=== PATIENT | female | born 1935 | race Caucasian/White ===

== ENCOUNTER 2019-07-13 13:36 | Emergency (ER) | payer OTHER, MEDICARE ==
[2019-07-13 13:53] VITALS: BP 148/69; PULSE 89; TEMP 98.3; BMI 24.5
--- NOTE | 2019-07-13 14:09 | PDOC ---
History of Present Illness - General Chief Complaint: Pain Stated Complaint: "Right Lung hurts" Time Seen by Provider: 07/13/19 13:47 History Source: Patient Exam Limitations: No Limitations - History of Present Illness Initial Comments: 07/13/19 14:16 High functioning 84-year-old female with history of hypertension and no underlying lung disease other than episode of pneumonia 15 years ago presents now for clarification of whether she has pneumonia and an abnormal chest x-ray. Patient reports a constant ache in her right mid back for the last 3 days, no associated fever/chills/cough/shortness of breath. She went to urgent care 2 days ago where a chest x-ray was performed, the urgent care provider preliminarily read an abnormality on the chest x-ray consistent with pneumonia. She was prescribed which she feels was doxycycline and has taken 2 doses so far. The subsequent radiology read was negative, so the patient saw another provider at the urgent care today who also felt they saw an abnormality. She presents to the emergency department here for further clarification on whether her chest x-ray is in fact abnormal. She has mild discomfort in a small area of the right mid back, denies any cardiopulmonary complaints otherwise. No recent sick contacts, no recent DVT or PE risk factors, no exercise limitations. Patient is followed by Dr. Dubose and Dr. Burnham of pulmonary. Past History - Past Medical History Allergies/Adverse Reactions: Allergies Allergy/AdvReac Type Severity Reaction Status Date / Time levofloxacin [From Levaquin] Allergy Severe Verified 07/13/19 13:38 Penicillins Allergy Unknown Verified 07/13/19 13:38 Home Medications: Ambulatory Orders Diltiazem Cd [Cardizem Cd -] 180 mg PO DAILY 10/04/12 predniSONE [Deltasone -] 40 mg PO DAILY #10 tablet 10/04/12 Albuterol Sulfate [Proair Hfa] 07/13/19 Doxycycline Monohydrate [Monodox] 100 mg PO Q12H 07/13/19 COPD: No HTN: Yes - Surgical History Abdominal Surgery: Yes Cholecystectomy: Yes - Immunization History Td Vaccination: No - Psycho Social/Smoking Cessation Hx Smoking Status: No Smoking History: Never smoked Number of Cigarettes Smoked Daily: 0 Hx Alcohol Use: No Drug/Substance Use Hx: No Substance Use Type: None Review of Systems - Review of Systems Constitutional: No: Chills, Fever, Night Sweats, Unintentional Wgt. Loss Respiratory: No: Cough, Shortness of Breath, SOB with Exertion Cardiac (ROS): No: Chest Pain, Edema, Lightheadedness, Palpitations ABD/GI: No: Diarrhea, Nausea, Vomiting Musculoskeletal: Yes: See HPI, Back Pain Neurological: No: Headache All Other Systems: Reviewed and Negative *Physical Exam - Vital Signs Last Vital Signs Temp Pulse Resp BP Pulse Ox 98.3 F 89 19 148/69 97 07/13/19 13:37 07/13/19 13:37 07/13/19 13:37 07/13/19 13:37 07/13/19 13:37 - Physical Exam 07/13/19 14:18 Vital signs normal, afebrile, O2 sat 97% on room air. GENERAL: The patient is awake, alert, and fully oriented, in no acute distress. Pleasant elderly woman joking with staff, no acute distress. HEAD: Normal with no signs of trauma. EYES: PERRL, EOMI, sclera anicteric, conjunctiva clear with no pallor. ENT: Oropharynx clear without exudates. Moist mucous membranes. NECK: Normal range of motion, supple without lymphadenopathy, JVD, or masses. LUNGS: Breath sounds equal, clear to auscultation bilaterally. No wheeze/ crackles/focally decreased breath sounds. Good air entry bilaterally. HEART: Regular rate and rhythm, normal S1 and S2 without murmur or rub. ABDOMEN: Soft/nontender/nondistended. BS wnl. No guarding or rebound. No palpable masses. No hepatosplenomegaly. EXTREMITIES: Normal range of motion, trace pretibial edema bilaterally. 2+ distal pulses. No cords, erythema, or tenderness. NEUROLOGICAL: Cranial nerves II through XII grossly intact. Normal speech, normal gait. PSYCH: Normal mood, normal affect. SKIN: Warm, Dry, no rashes or lesions noted. Heart Score/ECG Review #1 ECG reviewed & interpreted by me at: 13:59 General ECG Interpretation: Sinus Rhythm (with single PVC noted), Normal Rate ( 73), Normal Intervals (qtc 436), No acute ischemic changes ED Treatment Course - RADIOLOGY Radiology Studies Ordered: Category Date Time Status CHEST PA & LAT [RAD] Stat Radiology 07/13/19 13:41 Ordered Medical Decision Making - Medical Decision Making 07/13/19 14:22 High functioning 84-year-old female with no significant underlying pulmonary history presents with nonspecific right mid back pain since yesterday and uncertain findings on outpatient chest x-ray at urgent care. Patient is under treatment for presumed pneumonia with doxycycline, presents for clarification of the findings of her chest x-ray. Presentation could be consistent with early infectious process though patient has no other red flags or signs or symptoms suggestive of pneumonia. Musculoskeletal pain is possible as an etiology, this is not consistent with ACS or PE. EKG nonischemic repeat PA/lateral CXR discuss plan with PCPs 07/13/19 14:42 no acute chest pathology on rads read. On my review, there is some hilar density but this is unchanged from 20 and 33 months ago, but likely represents the finding the other providers identified on the chest xray. Dr. Burnham away on medical leave. Pt feels well, will complete her abx regardless , and will f/u with Dr. Dubose in the office. Understands return criteria. Discharge - Discharge Information Problems reviewed: Yes Clinical Impression/Diagnosis: Mid back pain on right side Condition: Stable Disposition: HOME - Follow up/Referral Referrals: Rosales Dubose MD [Staff Physician] - Yuriy Burnham MD [Staff Physician] - - Patient Discharge Instructions Patient Printed Discharge Instructions: DI for Thoracic Back Pain Additional Instructions: Activity as tolerated. Stay hydrated. Tylenol 1000 mg every 8 hours and/or ibuprofen 600 mg every 8 hours as needed for pain. An EKG and a chest x-ray showed no acute abnormalities. There is a finding on the chest x-ray which could represent with the previous physicians saw as an abnormality, however this is unchanged from prior chest x-rays you have had in the past. You may complete the antibiotic course as previously prescribed. It is possible the pain may be due to musculoskeletal pain. Continue your medications as previously prescribed by your physician. You should follow up with Dr. Dubose (Dr. Burnham is away) as soon as possible regarding today's emergency department visit. Return to the emergency department for any new or concerning symptoms, particularly worsening pain, fever, rash, difficulty breathing, chest pain. - Post Discharge Activity
--- NOTE | 2019-07-13 15:29 | EKG ---
Test Reason : Blood Pressure : / mmHG Vent. Rate : 073 BPM Atrial Rate : 073 BPM P-R Int : 182 ms QRS Dur : 088 ms QT Int : 396 ms P-R-T Axes : 080 065 053 degrees QTc Int : 436 ms SINUS RHYTHM WITH OCCASIONAL PREMATURE VENTRICULAR COMPLEXES POSSIBLE LEFT ATRIAL ENLARGEMENT BORDERLINE ECG WHEN COMPARED WITH ECG OF 24-NOV-2001 08:23, PREMATURE VENTRICULAR COMPLEXES ARE NOW PRESENT Confirmed by Suman Rucker ([id number]) on 07/13/2019 3:28:56 PM Referred By: HANANE SOLIS Confirmed By:Suman Rucker
== END 2019-07-13 14:50 | disposition home or self-care (01) ==
LOC: FER 13:36
DX: M54.6 Pain in thoracic spine (principal); Z88.8 Allergy status to other drugs, medicaments and biological substances; Z88.0 Allergy status to penicillin
CPT/HCPCS: 71046-TC-FY; 93005; 99283-25